=== PATIENT | male | born 1985 | race Caucasian/White ===

== ENCOUNTER 2017-09-10 08:00 | Outpatient (CLI) | payer OTHER ==
[2017-09-10 12:38] LABS: BASOPHILS % (AUTO) 0.5 %; EOSINOPHILS # (AUTO) 0.7 10^3/uL (0.0-0.7); EOSINOPHILS % (AUTO) 8.9 %; HGB - HEMOGLOBIN 15.5 g/dL (14.0-18.0); LYMPHOCYTES # (AUTO) 2.1 10^3/uL (1.5-3.5); LYMPHOCYTES % (AUTO) 25.5 %; MEAN CORPUSCULAR HEMOGLOBIN 29.9 pg (27.0-31.0); MEAN CORPUSCULAR HGB CONC 34.1 g/dL (32.0-36.0); MEAN CORPUSCULAR VOLUME 87.6 fL (80.0-94.0); MONOCYTES # (AUTO) 0.4 10^3/uL (0.0-1.0); MONOCYTES % (AUTO) 5.2 %; NEUTROPHILS # (AUTO) 4.9 10^3/uL (1.5-6.6); NEUTROPHILS % (AUTO) 59.9 %; PLT - PLATELET COUNT 230 10^3/uL (130-450); RED BLOOD COUNT 5.18 10^6/uL (4.70-6.10); RED CELL DISTRIBUTION WIDTH 14.2 % (12.0-15.0); WHITE BLOOD COUNT 8.2 x10^3/uL (4.8-10.8)
[2017-09-10 12:42] LABS: ALBUMIN 4.3 g/dL (3.2-5.5); ALBUMIN/GLOBULIN RATIO 1.3 (1.0-2.2); ALKALINE PHOSPHATASE 87 IU/L (42-121); ALT ALANINE AMINOTRANSFERASE 37 IU/L (10-60); AST ASPARTATE AMINOTRANSFERASE 26 IU/L (10-42); BILIRUBIN,TOTAL 0.3 mg/dL (0.2-1.0); BUN - BLOOD UREA NITROGEN 17 mg/dL (6-20); CALCIUM 9.3 mg/dL (8.5-10.3); CARBON DIOXIDE - CO2 27 mmol/L (21-32); CHLORIDE 106 mmol/L (101-111); CHOL/HDL RATIO 4.4 (<5.0); CHOLESTEROL 148 mg/dL; CREATININE 1.1 mg/dL (0.6-1.2); GFR - MDRD 78 (>89); GLUCOSE 101 mg/dL (70-100); HDL CHOLESTEROL 34 mg/dL; LDL CHOLESTEROL,CALCULATED 101 mg/dL; SODIUM 139 mmol/L (135-145); TOTAL PROTEIN 7.7 g/dL (6.7-8.2); VLDL CHOLESTEROL 13 mg/dL
[2017-09-10 12:47] LABS: HB2 TOTAL 17.1 g/dL; HEMOGLOBIN A1C 0.58 g/dL; HEMOGLOBIN A1C % 5.3 % (4.6-6.2)
== END 2017-09-10 08:01 ==
LOC: LAB.WCP 08:00
PROVIDERS: ATTEND Family Medicine
DX: Z00.00 Encounter for general adult medical examination without abnormal findings (principal)
CPT/HCPCS: 36415; 80053; 80061; 83036; 83721; 84443; 85025

== ENCOUNTER 2018-11-05 08:35 | Outpatient (CLI) | payer OTHER ==
--- NOTE | 2018-11-05 12:48 | XRAY Report ---
Reason: SHOULDER PAIN,RIGHT Procedure Date: 11/05/2018 Accession Number: [id number] / [id number] Procedure: WCP - Shoulder 2 View RT CPT Code: FULL RESULT: EXAM: RIGHT SHOULDER RADIOGRAPHY EXAM DATE: 11/05/2018 08:44 AM. CLINICAL HISTORY: Shoulder pain, right. COMPARISON: None. TECHNIQUE: 2 views. FINDINGS: Bones: Normal. No fracture or bone lesion. Joints: The glenohumeral joint is normally located. The acromioclavicular joint space measures 4.6 mm, top normal but without definite elevation of the clavicle in relation to the acromion. The coracoclavicular interval measures 13 mm, which is in the upper limits of normal. Soft tissues: The visualized hemithorax is unremarkable. No soft tissue swelling. IMPRESSION: Prominent acromioclavicular interval should be correlated with physical examination for potential radiographically subtle AC joint injury. There is no shaquille separation. [facility]
== END 2018-11-05 08:36 | disposition home or self-care (01) ==
LOC: DI.WCP 08:35
PROVIDERS: ATTEND Family Medicine
DX: M25.511 Pain in right shoulder (principal)

== ENCOUNTER 2018-12-20 17:12 | Outpatient (CLI) | payer OTHER ==
--- NOTE | 2018-12-23 21:51 | MRI Report ---
Reason: SHOULDER PAIN, RIGHT Procedure Date: 12/20/2018 Accession Number: [id number] / [id number] Procedure: MRI - Shoulder RT W/O CPT Code: FULL RESULT: EXAM: RIGHT SHOULDER MRI WITHOUT CONTRAST EXAM DATE: 12/20/2018 07:05 PM. CLINICAL HISTORY: SHOULDER PAIN, RIGHT. COMPARISON: 11/05/2018 right shoulder radiographs. TECHNIQUE: Multiplanar, multisequence T1-weighted and fluid-sensitive sequences of the shoulder without contrast. Other: None. FINDINGS: Acromioclavicular Region: The acromion is type II. The acromioclavicular joint is unremarkable. The coracoacromial and coracoclavicular ligaments are intact. No subacromial/subdeltoid bursal fluid. Glenohumeral Region: No subluxation. No effusion or loose bodies. The articular cartilage is unremarkable. The glenohumeral ligaments and joint capsule are unremarkable. Bone Marrow: No fracture, marrow edema or bone lesions. Labrum: The labrum is unremarkable on this nonarthrographic study. Musculature/Rotator Cuff: Moderate supraspinatus tendinosis, with a probable 3 mm intrasubstance tear at the footprint but no surfacing rotator cuff tendon tear. The infraspinatus, teres minor, and subscapularis tendons are normal. No edema or fatty atrophy. Biceps Tendon: The long head of the biceps tendon and biceps arnol are intact. Other: The subcutaneous tissues are unremarkable. IMPRESSION: 1. Moderate supraspinatus tendinosis, with a probable 3 mm intrasubstance tear at the central fibers of the footprint but no surfacing rotator cuff tendon tear. [facility]
== END 2018-12-20 17:13 | disposition home or self-care (01) ==
LOC: DI 17:12
PROVIDERS: ATTEND Family Medicine
DX: M75.81 Other shoulder lesions, right shoulder (principal)